=== PATIENT | male | born 1960 | race Caucasian/White ===

== ENCOUNTER 2020-01-23 11:38 | Emergency (ER) | payer BC, SELFPAY ==
[2020-01-23 11:55] VITALS: BP 155/86; PULSE 77; RESP 16; TEMP 37.2; O2SAT 98
--- NOTE | 2020-01-23 11:57 | ED.GENADULT ---
HPI - General Adult General Chief complaint: Eye Problems Stated complaint: Rash Left Eye Time Seen by Provider: 01/23/20 11:57 Source: patient and RN notes reviewed Mode of arrival: ambulatory Limitations: no limitations History of Present Illness HPI narrative: 59-year-old male presents with complaints of facial itching, redness, and swelling under LT eye after doing yard work for the past 2 days. Zyrtec with little relief. Denies new changes in personal hygiene products or laundry detergent. No new foods or medications. No burning, bleeding, or drainage. Denies eye redness, itching, vision or eye problems. Denies eye drainage, blurred vision, double vision, sensation of foreign body, or pain of eye with movement. Denies fever, chills, headaches, weakness, fatigue, myalgia, additional facial swelling except as mention above, or tongue swelling. Denies chest pain, wheezing, or dyspnea. Remains active. Denies cough, rhinorrhea, congestion, sore throat, nausea, vomiting, abdominal pain, and diarrhea. Tolerating po intake well. Denies recent traveling. Denies concerns for COVID-19 or exposures been home since [id number] order except for essential household needs, working, and return home. Some parts of this dictation were generated by voice recognition software and may contain typographical and/or grammatical inaccuracies. Related Data Home Medications Medication Instructions Recorded Confirmed aspirin 81 mg chewable tablet 81 mg PO DAILY 09/15/19 01/23/20 cholecalciferol (vitamin D3) 50 2,000 unit PO DAILY 09/15/19 01/23/20 mcg (2,000 unit) capsule omega-3 fatty acids-fish oil 360 See Rx Instructions .ROUTE .COMPLEX 09/15/19 01/23/20 mg-1,200 mg capsule Allergies Allergy/AdvReac Type Severity Reaction Status Date / Time No Known Allergies Allergy Verified 01/23/20 11:57 Review of Systems Review of Systems: Narrative: CONSTITUTIONAL: Denies fever, chills, sweats. EYES: Denies visual changes, redness, discharge. ENT: Denies rhinorrhea, congestion, sore throat, otalgia. CARDIOVASCULAR: Denies chest pain, palpitations, edema. RESPIRATORY: Denies dyspnea, wheezing, cough. GASTROINTESTINAL: Denies abdominal pain, nausea, vomiting, diarrhea. GENITOURINARY: Denies dysuria, hematuria, abnormal discharge SKIN: Complains of facial, itching, redness, and swelling under LT eye. Denies drainage. MUSCULOSKELETAL: Denies acute back pain, joint pain, or myalgia. NEUROLOGIC: Denies numbness or focal weakness. PSYCHIATRIC: Denies anxiety or depression. All other systems reviewed & are unremarkable except as noted in HPI and below. PMFSH Past Medical History Medical History (Updated 01/23/20 @ 12:11 by CIELO Garza) HLD (hyperlipidemia) Hypertension Surgical History Surgical History (Updated 01/23/20 @ 12:09 by CIELO Garza) History of arthroscopy of knee Right in 2018 History of total knee arthroplasty Left in 2019 Social History Social History (Updated 01/23/20 @ 12:09 by CIELO Garza) Smoking status: Former smoker Second hand tobacco smoke exposure: No Smoking end date: 09/20/98 Alcohol intake: never Substance use: never Living arrangements: with family Occupation/Education: occupation Gender identity (if verbalized by the patient): Male Comments At time of signature, agree with nurse past medical, surgical, social, and family history. There is no relevant family history pertinent to the presenting complaint. Exam Narrative: Exam Narrative: GENERAL: This is a well-nourished, well-developed patient, in no apparent distress. Talking in full sentences without deficit and ambulate with steady gait without dyspnea. HEAD: normocephalic, atraumatic. EYES: PERRL. Bilateral sclera clear/white. Vision is grossly intact. No visible or palpable Hordeolum present, no drainable abscess. No foreign body or lesions. No tenderness on palpation or erythema. Ski
== END 2020-01-23 12:15 | disposition home or self-care (01) ==
PROVIDERS: Emergency Provider Nurse Practitioner Family; PCP Emergency Medicine
DX: E78.5 Hyperlipidemia, unspecified (principal); I10 Essential (primary) hypertension; Z96.652 Presence of left artificial knee joint; Z87.891 Personal history of nicotine dependence; L30.9 Dermatitis, unspecified
CPT/HCPCS: 99213; G0463

== ENCOUNTER 2024-02-11 07:55 | Emergency (ER) | payer OTHER, BC, SELFPAY ==
[2024-02-11] VITALS (10 sets, daily range): BP systolic 106–127; BP diastolic 58–75; PULSE 62–69; RESP 16–20; TEMP 36.6; O2SAT 94–97
--- NOTE | ~2024-02-11 | XR_ITS ---
EXAMINATION: XR shoulder RT min 2V DATE: 02/11/2024 08:37 INDICATION: Right shoulder pain. Limited range of motion. Fall. TECHNIQUE: 4 views of right shoulder were obtained. COMPARISON: None. FINDINGS: Bone alignment is normal. There is likely a fracture of anterior glenoid. There is mild ost eoarthritis of glenohumeral joint and moderate osteoarthritis of acromioclavicular joint. There is a loose body in the glenohumeral joint. IMPRESSION: 1. Likely fracture of anterior glenoid. Consider CT. 2. Polyarticular osteoarthritis. 3. Loose body in the glenohumeral joint. Reviewed, dictated and finalized at location A.
--- NOTE | ~2024-02-11 | CT_ITS ---
EXAMINATION: CT shoulder RT wo con DATE: 02/11/2024 09:15 INDICATION: Right shoulder injury and pain. TECHNIQUE: Computed tomography (CT) of the right shoulder was performed without intravenous contrast. Automated exposure control and iterative reconstruction technique were employed. The dose-length pro duct was 452.32 mGy-cm. COMPARISON: Right shoulder radiographs 02/11/24 FINDINGS: There is anterior subluxation of humeral head with respect to glenoid. There is an impactio n fracture of superior posterolateral aspect of humeral head (Hill-Sachs fracture deformity). There i s a comminuted fracture of anterior glenoid. One anterior glenoid fracture fragment demonstrates medi al displacement and 3 mm impaction. A second fracture fragment is displaced into the posterior glenoh umeral joint. There is moderate osteoarthritis of acromioclavicular joint. There are osteophytes of t he glenoid. There is a moderate-sized glenohumeral joint effusion. IMPRESSION: 1. Displaced comminuted fracture of anterior glenoid. 2. Hill-Sachs fracture deformity. 3. Moderate-sized glenohumeral joint effusion. Reviewed, dictated and finalized at location A.
[2024-02-11] MEDS: HYDROcodone/acetaminophen (*CRX) 5-325 MG TABLET 1 TAB PO (08:06)
--- NOTE | 2024-02-11 10:47 | ED.UPPEXIN ---
HPI - Extremity Injury (Upper) General Chief Complaint: Extremity Injury, Upper Stated Complaint: R shoulder injury Time Seen by Provider: 02/11/24 07:57 Source: patient Mode of arrival: ambulatory Limitations: no limitations History of Present Illness HPI narrative: 63-year-old with a history of hypertension, hypercholesteremia, diabetes recent diagnosis of prostate CA scheduled for radiation treatment on February 22 comes in with right shoulder pain. 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 He denies any head or neck injuries. He states that he is unable to use his shoulder. complaint: injury to: right and shoulder Other injuries: none Handedness: right Place: work Severity: moderate Exacerbating factors: movement of extremity Context: fall Associated symptoms: denies other symptoms Related Data Home Medications Medication Instructions Recorded Confirmed aspirin 81 mg chewable tablet 81 mg PO DAILY 09/15/19 02/04/24 cholecalciferol (vitamin D3) 50 2,000 unit PO DAILY 09/15/19 02/04/24 mcg (2,000 unit) capsule (Vitamin D3) omega-3 fatty acids-fish oil 360 See Rx Instructions .Route .COMPLEX 09/15/19 02/04/24 mg-1,200 mg capsule (Fish Oil) pantoprazole 20 mg tablet,delayed 20 mg PO DAILY 10/04/23 02/04/24 release triamterene 37.5 1 cap PO DAILY 10/04/23 02/04/24 mg-hydrochlorothiazide 25 mg capsule Allergies Allergy/AdvReac Type Severity Reaction Status Date / Time No Known Allergies Allergy Verified 02/04/24 11:44 Review of Systems Review of Systems: All systems reviewed & are unremarkable except as noted in HPI and below Constitutional: Constitutional: Reports no additional constitutional complaints Eyes: Eyes: Reports no additional eye complaints ENT: Reports system reviewed and no additional complaints, except as documented Cardiovascular: Cardiovascular: Reports no additional cardiovascular complaints Respiratory: Respiratory: Reports no additional respiratory complaints Gastrointestinal: Gastrointestinal: Reports no additional gastrointestinal complaints Musculoskeletal: Musculoskeletal: Reports as per HPI Neurologic: Reports system reviewed and no additional complaints, except as documented Psychiatric: Psychiatric: Reports no additional psychiatric complaints PMFSH Past Medical History Medical History Abnormal LFTs Acute pain of right knee Allergic conjunctivitis of both eyes Allergic reaction Body mass index [BMI] 32.0-32.9, adult (06/21/17) Body mass index [BMI] 33.0-33.9, adult (12/01/18) Chronic pain of left knee Complex tear of medial meniscus of right knee as current injury Fatigue HLD (hyperlipidemia) Hypertension Metabolic syndrome Other chronic pain Other obesity due to excess calories Tear of lateral meniscus of left knee Surgical History Surgical History History of arthroscopy of knee Right in 2018 History of total knee arthroplasty Left in 2019 Family History Family History Father Acute myocardial infarction, Onset Age: 79 Mother Family history of primary malignant neoplasm of liver, Onset Age: 75 Family history of malignant neoplasm of breast in first degree relative, Onset Age: 75 Family history of malignant neoplasm of kidney, Onset Age: 75 Other Family history of cardiovascular disease Family history of malignant neoplasm Social History Social History Smoking status: Former smoker Second hand tobacco smoke exposure: No Smoking end date: 09/20/98 Alcohol intake: never Substance use: never Lack of Transportation: No Lack of Food: Never True Current Housing: Decline to Answer Concerned About Future H
== END 2024-02-11 12:53 | disposition short-term general hospital (02) ==
PROVIDERS: Emergency Provider Family Medicine; PCP Emergency Medicine
DX: S42.141A Displaced fracture of glenoid cavity of scapula, right shoulder, initial encounter for closed fracture (principal); C61 Malignant neoplasm of prostate; I10 Essential (primary) hypertension; E78.00 Pure hypercholesterolemia, unspecified; E11.9 Type 2 diabetes mellitus without complications; E88.810 Metabolic syndrome; E66.09 Other obesity due to excess calories; Z68.29 Body mass index [BMI] 29.0-29.9, adult; Z96.652 Presence of left artificial knee joint; Z87.891 Personal history of nicotine dependence; M19.011 Primary osteoarthritis, right shoulder; Z79.85 Long-term (current) use of injectable non-insulin antidiabetic drugs; Z79.84 Long term (current) use of oral hypoglycemic drugs; Z79.82 Long term (current) use of aspirin; Z79.899 Other long term (current) drug therapy; W10.9XXA Fall (on) (from) unspecified stairs and steps, initial encounter
CPT/HCPCS: 73030; 73200; 99285; A4565; A9270

== ENCOUNTER 2024-03-01 08:24 | Outpatient (CLI) | payer BC, SELFPAY ==
--- NOTE | ~2024-03-01 | CT_ITS ---
CT Scan of the Chest without Contrast: Clinical Indication: Pulmonary nodule Technique: Contiguous sections were acquired throughout the chest without intravenous contrast. Dose reduction technique was used on this scan by utilizing automated exposure control and iterative recon struction technique. The dose-length product (DLP) was 259.84 mGy-cm. Findings: There is no evidence of any significant mediastinal, hilar or axillary lymphadenopathy. The mediastin al soft tissues appear normal. There is no evidence of pleural or pericardial effusion. There is focal somewhat erfi-rm-hzb-type nodularity in the right lower lobe. There is linear bibasila r scarring or atelectasis. Images through the upper abdomen reveal no abnormalities. Impression: Focal tree-in-bud type nodularity right lower lobe, suspicious for focal small airways infectious pro cess. Nodules over a benign appearance. Reviewed, dictated and finalized at [facility]. Impression: Focal tree-in-bud type nodularity right lower lobe, suspicious for focal small airways infectious process. Nodules over a benign appearance.
== END 2024-03-01 08:25 | disposition home or self-care (01) ==
LOC: ANHIMG 08:27
PROVIDERS: PCP Emergency Medicine; Visit Provider Emergency Medicine
DX: R91.1 Solitary pulmonary nodule (principal)
CPT/HCPCS: 71250

== ENCOUNTER 2024-03-10 13:34 | Outpatient (CLI) | payer BC, SELFPAY ==
--- NOTE | ~2024-03-10 | PE_ITS ---
EXAMINATION: PET_PETPSMAST_PT DATE: 03/10/2024 15:41 INDICATION: Malignant neoplasm of the prostate TECHNIQUE: 4.583 mCi of Locametz Ga-68([id number]) was administered i.v. Low dose computed joycelyn ography (CT) images were acquired from the base of the brain to the base of the brain to the proximal thighs for attenuation correction and anatomic localization. Positron emission tomography (PET) imag es were acquired in the same distribution beginning 80 minutes after injection. Images including fuse d PET/CT images were reconstructed in axial, coronal, and sagittal planes. Automated exposure control technique was employed. The dose-length product was 1207.43mGy-cm. COMPARISON: Chest CT dated 03/01/2024 FINDINGS: Head/neck: Typical pattern of symmetric physiologic increased activity in the lacrimal, parotid and submandibula r glands as well as along the mucosa of the nasal and oral cavities, pharynx and hypopharynx. No path ologically enlarged cervical lymphadenopathy or suspicious foci of increased uptake in the visualized head or neck. Chest: Mild bibasilar atelectasis. Again seen are few small pulmonary nodules clustered in the posterior rig ht lower lobe measuring up to 5 mm which are without evident PSMA uptake and given the distribution f avors an infectious/inflammatory etiology. No pleural effusion. Heart size is normal. Atherosclerotic coronary artery calcific lesion. No pericardial effusion. Thoracic aorta is normal in caliber. There are a few normal-sized bilateral axillary lymph nodes with minimal PSMA activity the largest and mos t intense on the left measuring 1.8 x 0.8 cm with fatty hilum and with maximal SUV of 2.7 which are m ost likely reactive. Abdomen/pelvis/proximal thighs: Physiologic renal accumulation and excretion of activity in the kidneys, bladder and along portions o f ureters. Prostatomegaly measuring 4.5 x 3.4 similar with diffuse heterogeneous mild PSMA uptake wit h maximal SUV of 4.8. Maximal SUV of 4.8. Normal degree and slightly heterogenous pattern of increase d uptake throughout the liver and spleen without radiologic correlate or dominant PSMA avid lesion. T he gallbladder, pancreas and bilateral adrenal glands are normal. Moderate uptake scattered throughou t the bowels with typical duodenal and proximal jejunal predominance and without radiologic correlate , also likely physiologic. Normal appendix. No other abnormal foci of increased uptake or pathologica lly enlarged lymphadenopathy in the abdomen, pelvis or proximal thighs. Musculoskeletal: Mild diffuse synovial activity about the right glenohumeral joint where there is a subacute appearing Bankart fracture along the anteroinferior glenoid and associated Hill-Sachs fracture trough along th e humeral head consistent with recent anterior glenoid humeral dislocation injury. No suspicious lyti c, blastic or PSMA avid bone lesions. IMPRESSION: 1. Mild likely heterogeneous PSMA activity throughout the enlarged prostate consistent with reported primary prostate cancer. 2. Minimal uptake at a few normal-sized bilateral axillary lymph nodes which given the low-level acti vity in the atypical distribution for metastases are most likely reactive. No pathologically enlarged or more PSMA avid lesions to suggest metastatic disease. 3. Mild likely reactive synovial uptake associated with a recent right shoulder dislocation with rece nt-appearing Hill-Sachs fracture and Bankart fractures. Reviewed, dictated and finalized at location A. IMPRESSION: 1. Mild likely heterogeneous PSMA activity throughout the enlarged prostate con sistent with reported primary prostate cancer. 2. Minimal uptake at a few normal-sized bilateral axillary lymph nodes which gi doug the low-level activity in the atypical distribution for metas
== END 2024-03-10 13:35 | disposition home or self-care (01) ==
PROVIDERS: PCP Emergency Medicine; Visit Provider Radiology Radiation Oncology
DX: C61 Malignant neoplasm of prostate (principal)
CPT/HCPCS: 78815; A9596

== ENCOUNTER 2024-03-14 09:50 | Outpatient (CLI) | payer BC, SELFPAY ==
--- NOTE | ~2024-03-14 | DEXA_ITS ---
Bone Density Report Name: PIPE SCHMITT Age: 63 Sex: Male Ethnicity: White Date of : 1960 Indication: cancer; Referring Provider: ALEX WASHINGTON Study: Bone densitometry was performed. Exam Date: March 14, 2024 Accession number: [id number] Bone Density: Region BMD T-score Z-score Classification AP Spine(L1-L4) 1.057 -0.3 0.4 Normal Femoral Neck (Left) 0.777 -1.1 -0.1 Osteopenia Total Hip (Left) 0.983 -0.3 0.2 Normal Femoral Neck (Right) 0.763 -1.2 -0.2 Osteopenia Total Hip (Right) 0.925 -0.7 -0.2 Normal Total Hip Mean 0.954 -0.5 0.0 Normal World Health Organization criteria for BMD impression classify patients as: Normal (T-score at or above -1.0), Osteopenia (T-score between -1.0 and -2.5), or Osteoporosis (T-score at or below -2.5). 10-year Fracture Risk(1): Major Osteoporotic Fracture 5.2% Hip Fracture 0.6% Reported Risk Factors: [place] (), Neck BMD=0.763, BMI=31.7 (1) FRAX(R) Version 3.08. Fracture probability calculated for an untreated patient. Fracture probability may be lower if the patient has received treatment. Clinical Information Provided by Patient: Has used the following medications: Vitamin D, Calcium Has the following medical conditions: Cancer, Prostate CA Patient maximum height was 59.0 No regular weight bearing exercise Drinks caffeinated beverages Impression: The patient has low bone mass, based on the Right Femoral Neck T-score. The patient has an estimated ten-year risk of hip fracture of 0.6% and an estimated ten-year risk of major fracture of 5.2%, based on the WHO FRAX algorithm. Discussion: BONE DENSITY IS LOW AT ONE OR MORE SKELETAL SITES. This patient's lowest T-score is low at one or more skeletal sites. It meets the World Health Organization's (WHO) criteria for ?low bone mass? (T-score between -1.0 and -2.5). The patient's 10-year risk of fracture as calculated by FRAX is less than the threshold where pharmacological therapy is recommended by the National Osteoporosis Foundation (NOF). However, all treatment decisions require clinical judgment and consideration of individual patient factors, including patient preferences, comorbidities, previous drug use, risk factors not captured in the FRAX model (e.g., frailty, falls, vitamin D deficiency, increased bone turnover, interval significant decline in bone density) and possible under or overestimation of fracture risk by FRAX. The patient should follow a healthful lifestyle (good nutrition with adequate calcium and vitamin D, and appropriate weight-bearing exercise). Follow-Up: Consider repeating this study in 2 to 3 years to reassess this patient's status, or sooner if there is some new clinical indication. Reported by: MEME on 03/14/2024 11:55:00 AM.
== END 2024-03-14 09:51 | disposition home or self-care (01) ==
PROVIDERS: PCP Emergency Medicine; Visit Provider Nurse Practitioner
DX: M85.852 Other specified disorders of bone density and structure, left thigh (principal); M85.851 Other specified disorders of bone density and structure, right thigh; Z79.818 Long term (current) use of other agents affecting estrogen receptors and estrogen levels
CPT/HCPCS: 77080

== ENCOUNTER 2025-07-02 08:33 | Outpatient (CLI) | payer BC, SELFPAY ==
--- NOTE | ~2025-07-02 | US_ITS ---
EXAMINATION: US art doppler sierra BEAR DATE: 07/02/2025 09:25 INDICATION: Peripheral arterial occlusive disease TECHNIQUE: Segmental pressures and plethysmographic and Doppler waveforms of the brachial and lower extremity arteries were obtained. COMPARISON: None. FINDINGS: Right and left brachial artery pressures of 98 mm Hg and 101 mm Hg, respectively, are concordant (normal difference <= 30 mmHg). The right ankle-brachial index (OLGA) is 1.21 (normal >= 0.9-1). The right great toe-brachial index (TBI) is 0.80 (normal >= 0.6-0.8). The right lower extremity segmental pressure gradients are increased between the right bimel-qjk-lotr popliteal artery with respect of the above the knee popliteal artery and the right dorsalis pedis artery which could be due to artifactually elevated pressures at the miknr-ebc-jlio popliteal artery (normal gradients <= 20-30 mmHg between adjacent levels on the same leg or the same levels on the two legs). Arterial waveforms are biphasic with brisk systolic upstrokes throughout the arteries of the right lower limb. The left OLGA is 1.23. The left TBI is 0.87. The left lower extremity segmental pressure gradients are normal. Arterial waveforms are biphasic with brisk systolic upstrokes throughout the arteries of the left lower limb. IMPRESSION: 1. Normal OLGA's and TBI's bilaterally. No significant arterial occlusive disease. Reviewed, dictated and finalized at location A. IMPRESSION: 1. Normal OLGA's and TBI's bilaterally. No significant arterial occlusive diseas e.
--- OUTSIDE RECORDS SUMMARY | 2025-07-02 08:45 | XMS_ITS | Encounter Summary ---
Author Organization [facility] Address [address] [place] [address] Phone Care Team Providers Care Houseperson Name Role Phone Hawk Bah MD Primary Care Provide r Encounter Details Date Type Department Care Team (Late st Contact Info) Description 10/18/2024 Documentation [facility] Medicine Orthopaedic Surgery [address] [place] [address] Rozina Rowell RN Social History Tobacco Use Types Packs/Day Years Used Date Smoking Tobacco: Former Cigarettes 1 19 - 1998 Smokeless Tobacco: Never Alcohol Use Standard Drinks/Week Comments Not Currently 0 (1 standard drink = 0.6 oz pur e alcohol) AUDIT-C Answer Date Recorded Q1: How often do you have a drink containing alc ohol? Monthly or less 09/26/2024 Q2: How many drinks containi ng alcohol do you have on a typical day when you are drinking? 1 or 2 09/26/2024 Q3: How often do you have si x or more drinks on one occasion? Never 09/26/2024 Personal Safety Answer Date Recorded Have you ever been in or are you currently in a harmful physical or emotional relationship or is someone making you feel afraid or unsafe? Denies 10/17/2024 Sex and Gender Information Value Date Recorded Sex Assigned at Not on file Legal Sex Male 9:28 AM [employer] ENG[employer] Gender Identity Not on file Sexual Orientation Not on file documented as of this encounter Plan of Treatment Not on file documented as of this encounter Visit Diagnoses Not on filedocumented in this encounter Care Teams Houseperson Relationship Specialty Start Date End Date Hawk Bah MD [address] [place] [address] PCP - General Emergency Medicine 05/29/20 documented as of this encounter
--- OUTSIDE RECORDS SUMMARY | 2025-07-02 08:45 | XMS_ITS | Clinical Summary ---
Author [place] [facility] [place] [address] [facility] [place] Address [address] [place] [address] Care Team Providers Care Package Dye Stand Loader Name Role Phone Hawk Bah MD Primary Care Provide r Allergies No known active allergies Medications lisinopriL (PRINIVIL,ZESTR IL) 10 mg tablet Take 1 tablet (10 mg total) by mouth nightly 0 Active fenofibrate (TRIGLIDE) 160 mg tablet Take 1 tablet (160 mg total) by mouth nightly 0 Active simvastatin (ZOCOR) 20 mg tablet Take 1 tablet (20 mg total) by mouth nightly 4 Active Ozempic 0.25 mg or 0.5 mg (2 mg/3 mL) pen injector injection Inject 3 mL (2 mg total) under the skin once a week Sundays 4 Active metFORMIN (GLUCOPHAGE) 500 mg tablet Take 1 tablet (500 mg total) by mouth 2 (two) times a day [address] (PROTONIX) 20 mg EC tabletIndicatio ns:Laryngophary ngeal reflux (LPR) Take 1 tablet by mouth once daily 30 tablet 7 4 Active Additional Information Patient taking differently:20 mg oralNightly, Indications: Treatment of Non-Bleeding Gastric Disorder, Informant: Self, Reported on 10/17/2024 cetirizine (ZyrTEC) 10 mg tablet Take 1 tablet (10 mg total) by mouth nightly Active cholecalciferol (VITAMIN D-3) 5,000 unit tablet Take 1 tablet (5,000 Units total) by mouth nightly Active calcium carbonate (CALCIUM 600 ORAL) Take 1 tablet by mouth every morning Active aspirin 81 mg enteric coated tabletIndicatio ns:prevention of thrombosis Twice daily for 2 weeks then resume daily dosage 5 Active celecoxib (CeleBREX) 200 mg capsuleIndicati ons:Pain Take 1 capsule (200 mg total) by mouth 2 (two) times a day for 14 days 28 capsule 5 Active oxyCODONE (ROXICODONE) 5 mg immediate release tabletIndicatio ns:Pain Take 1 tablet (5 mg total) by mouth every 4 (four) hours as needed for pain 20 tablet 5 Active triamterene-hyd roCHLOROthiazid e 37.5-25 mg per tablet/capsuleI ndications:Meni ere's disease of left ear Take 1 tablet by mouth once daily 90 tablet 5 5 Active Active Problems Problem Noted Date Diagnosed Date S/P shoulder replacement, right 10/17/2024 Arthritis of shoulder 08/10/2024 Instability of right shoulder joint 08/10/2024 Impacted cerumen of right ear 07/17/2024 Loose body of right shoulder 03/15/2024 Sensorineural hearing loss ( SNHL) of left ear with restricted hearing of right ear 07/05/2023 Dysfunction of both eustachian tubes 07/05/2023 Seasonal allergic rhinitis due to pollen 023 Meniere's disease of left ear 09/30/2020 Tinnitus of left ear 09/30/2020 Laryngopharyngeal reflux (LPR) 09/30/2020 Peripheral arterial occlusive disease 02/03/2014 Overview (12/23/2016): PAD (peripheral artery disease) Multiple-type hyperlipidemia 02/03/2014 Overview (12/25/2016): MIXED HYPERLIPIDEMIA Precordial pain 02/03/2014 Overview (12/25/2016): PRECORDIAL PAIN Encounters Date Type Department Care Team Description 04/16/2025 9:00 AM CDT Office Visit [facility] Medicine Orthopaedic Surgery [address] [facility] [address] [place] [id number] Kendall Greene MD S/P reverse total shoulder arthroplasty, right (Primary Dx) 04/16/2025 8:10 AM CDT - 04/16/2025 11:59 PM CDT Hospital Encounter [facility] [id number] [place] [id number] Kendall Greene MD S/P reverse total shoulder arthroplasty, right Discharge Disposition: Discharge to home or self care from Last 3 Months Surgical History Surgery Date Site/Laterality Comments REPLACEMENT TOTAL KNEE 09/20/2018 - 09/19/2019 Left TONSILLECTOMY childhood MYRINGOTOMY W/ TUBES 09/20/2016 - 09/19/2017 Bilateral FLUORO GUIDED INJECTION SHOU LDER RIGHT 06/22/2024 Right Medical History Medical History Date Comments Hypertension GERD (gastroesophageal reflux disease) Dizziness Prostate cancer (HCC) HL (hearing loss) Shoulder fracture, right Family History Medical History Relation Name Comments Heart attack Father Heart disease Father Cancer Mother Thyroid disease Mother Anesthesia problems Neg Hx Malig Hyperthermia Neg Hx Pseudochol deficiency Neg Hx Relation Name Status Comments Father Mother Social History Tobacco Use Types Packs/Day Years Used Date Smoking Tobacco: Former Cigarettes 1 19 1 - 1998 Smokeless Tobacco: Never Tobacco Cessation:Counseling Given: Not Answered Alcohol Use Standard Drinks/Week Comments Not Currently [...] on file Legal Sex Male 9:28 AM [employer] Gender Identity Not on file Sexual Orientation Not on file Obstetrics History Last Filed Vital Signs Vital Sign Reading Time Taken Comments Blood Pressure 120/92 10/18/2024 7:36 AM [employer] Pulse 60 10/18/2024 7:36 AM [employer] Temperature 36.3 C (97.4 F) 10/18/2024 7:36 AM [employer] Respiratory Rate 16 10/18/2024 7:36 AM [employer] Oxygen Saturation 98% 10/18/2024 7:36 AM [employer] Inhaled Oxygen Concentration - - Weight 96.2 kg (212 lb) 11/27/2024 10:30 AM CDT Height 182.9 cm (6') 11/27/2024 10:30 AM CDT Body Mass Index 28.75 11/27/2024 10:30 AM CDT Plan of Treatment Health Maintenance Due Date Last Done Comments Colon Cancer Screening-Colonoscopy 1960 Depression Screening 1960 Hepatitis C Screening 1960 Prostate Cancer Screening-PSA 1960 DTaP/Tdap/Td Vaccine (1 - Tdap) 1971 Hepatitis B Screening 1978 Pneumococcal vaccine 65+ (1 of 1 - PCV) 2010 Zoster Vaccine (1 of 2) 2010 Covid-19 Vaccine (2 - season) 05/21/202505/2021 Influenza Vaccine (#1) 2025 Abdominal Aortic Aneurysm (AAA) Screen 2025 Well Visit 65+ 2025 Fall Risk Assessment 10/18/2025 10/18/2024 Medical Devices Implanted Type Area Assistant Activities Director Device Identifier Shelf Expiration Date Model / Serial / Lot [employer] Comprehensive Taper Adapter 25mm Mini Baseplate Glenoid Reverse [id number] - [id number] Implanted:Qty: 1 on 10/17/2024 by Kendall Greene MD at [facility] Right: Shoulder [employer] 01/13/2034 [id number] / / [id number] [employer] Comprehensive 6.5mm 35mm Central Hexagonal 3.5mm Screw Bone [id number] - [id number] Implanted:Qty: 1 on 10/17/2024 by Kendall Greene MD at [facility] Right: Shoulder [employer] [id number] 07/04/2034 [id number] / / [id number] [employer] Comprehensive 4.75mm 25mm Fix Angle Lock Hexagonal 3.5mm Screw [id number] - [id number] Implanted:Qty: 1 on 10/17/2024 by Kendall Greene MD at [facility] Right: Shoulder [employer] [id number] 03/08/2034 [id number] / / [id number] [employer] Comprehensive 4.75mm 15mm Fix Angle Lock Hexagonal 3.5mm Screw [id number] - [id number] Implanted:Qty: 1 on 10/17/2024 by Kendall Greene MD at [facility] Right: Shoulder [employer] [id number] 08/23/2034 [id number] / / [id number] [employer] Component Glenoid 40mm Std Rvrs Glenosphere Comprehensive [id number] - [id number] Implanted:Qty: 1 on 10/17/2024 by Kendall Greene MD at [facility] Right: Shoulder [employer] [id number] 01/16/2034 [id number] / / [id number] [employer] Comprehensive 4.75mm 40mm Fix Angle Lock Hexagonal 3.5mm Screw [id number] - [id number] Implanted:Qty: 1 on 10/17/2024 by Kendall Greene MD at [facility] Right: Shoulder [employer] [id number] 12/25/2031 [id number] / / [id number] [employer] Humeral Stem Standard Size 12 [id number] - [id number] Implanted:Qty: 1 on 10/17/2024 by Kendall Greene MD at [facility] Right: Shoulder [employer] [id number] 10/17/2033 [id number] / / [id number] [employer] Body Prosthesis Identity -6mm Shoulder Reverse Strl [id number] - [id number] Implanted:Qty: 1 on 10/17/2024 by Kendall Greene MD at [facility] Right: Shoulder [employer] [id number] 07/30/2034 [id number] / / [id number] [employer] Cup Humeral 40x3mm Identity Shoulder Strl [id number] - [id number] Implanted:Qty: 1 on 10/17/2024 by Kendall Greene MD at [facility] Right: Shoulder [employer] 05/03/2029 [id number] / / [id number] Procedures Procedure Name Priority Date/Time Associated Diagnosis Comments XR SHOULDER RIGHT 2 OR MORE VIEWS Schedule Routine, Read Routine (OP Routine) 04/16/2025 8:18 AM CDT S/P reverse total shoulder arthroplasty, right from Last 3 Months Results * XR Shoulder Right 2+ View (04/16/2025 8:18 AM CDT) Anatomical Region Laterality Modality Upper Extremities, Shoulder Right Comp uted Radiography 04/16/2025 9:18 AM CDT Impressions 04/16/2025 1:33 PM CDT Reverse right total shoulder arthroplasty in unchanged, expected alignment. Dictated by: Lm Conway MD The radiology attending physician has personally reviewed this study, and had reviewed and/or edited this written report and agrees with it. Electronically signed by: Phil Agrawal M.D. Narrative 04/16/2025 1:33 PM CDT EXAMINATION: XR SHOULDER RIGHT 2 OR MORE VIEWS HISTORY: Right shoulder arthroplasty FINDINGS: 4 views the right shoulder are submitted for interpretation. Comparison is made with radiographs dated 01/08/2025. Reverse right total shoulder arthroplasty in unchanged, except alignment, without evidence of periprostatic fracture or loosening. There is mild acromioclavicular osteoarthritis. Procedure Note Phil Agrawal MD PhD - 04/16/2025 EXAMINATION: XR SHOULDER RIGHT 2 OR MORE VIEWS HISTORY: Right shoulder arthroplasty FINDINGS: 4 views the right shoulder are submitted for interpretation. Comparison is made with radiographs dated 01/08/2025. Reverse right total shoulder arthroplasty in unchanged, except alignment, without evidence of periprostatic fracture or loosening. There is mild acromioclavicular osteoarthritis. IMPRESSION: Reverse right total shoulder arthroplasty in unchanged, expected alignment. Dictated by: Lm Conway MD The radiology attending physician has personally reviewed this study, and had reviewed and/or edited this written report and agrees with it. Electronically signed by: Phil Agrawal M.D. Kendall Greene MD IMG XR PROCEDURES Final Result from Last 3 Months Insurance [employer]M TRADITIONAL ANTH ACCESS CHOICE ANTHEM ACCESS CHOICE [employer]ENS[employer] GENERIC [id number] [place] [address] WORKERS COMPENSATION GENERIC Advance Directives For more information, please contact: [phone] * Full Code (Latest Code Status on File) Date Activated Date Inactivated Comments 10/17/2024 3:29 PM 10/18/2024 3:34 PM Care Teams Package Dye Stand Loader Relationship Specialty Start Date End Date Hawk Bah MD [address] [place] [address] PCP - General Emergency Medicine 05/29/20
--- OUTSIDE RECORDS SUMMARY | 2025-07-02 08:45 | XMS_ITS | Clinical Summary ---
Author Organization [facility] Address [address] [place] [address] Care Team Providers Care Digital Marketing Analyst Name Role Phone Unavailable Primary Care Provider Unavailabl e Social History Tobacco Use Types Packs/Day Years Used Date Smoking Tobacco: Never Assessed Sex and Gender Information Value Date Recorded Sex Assigned at Not on file Legal Sex Male 2:02 PM CDT Gender Identity Not on file Sexual Orientation Not on file Plan of Treatment Health Maintenance Due Date Last Done Comments DTAP/TDAP/TD VACCINES (1 - Tdap) 1979 COLORECTAL SCREENING 2005 Colorectal Cancer Screening 2005 FIT-DNA Q 3 years 2005 FIT/FOBT Q 1 year 2005 Flex Sig/CT Colonography Q 5 years 2005 PNEUMOCOCCAL VACCINE 50+ YEARS (1 of 1 - PCV) 06/17/20 10 ZOSTER VACCINE (1 of 2) 2010 INFLUENZA VACCINE (#1) 2025 RSV VACCINE (60+ or ) (1 - 1-dose 75+ series) 2035 Insurance [employer] Member Subscriber Plan / Payer (Ef fective 2024-Present) Name:Margarito Granger Relation to Subscriber:Employee Name:[id number] Address[address] [address] [place], [place] [address] [address] [place] [address] Payer ID:Not on file Group ID:Not on file Type:Other Address: [address] [place] [address]
== END 2025-07-02 08:34 | disposition home or self-care (01) ==
PROVIDERS: PCP Emergency Medicine; Visit Provider Podiatrist Foot & Ankle Surgery
DX: I73.9 Peripheral vascular disease, unspecified (principal)
CPT/HCPCS: 93923